=== PATIENT | female | born 1950 | race Two or more races ===

== ENCOUNTER 2020-07-14 21:57 | Emergency (ER) | payer MEDICARE, OTHER ==
[~2020-07-14] VITALS: Ht 162.6 cm; Wt 63.5 kg
[2020-07-14] MEDS ORDERED: cloNIDine HCL 0.1 MG TAB PO ONE (22:30)
[2020-07-14] MEDS ORDERED: HYDROcodone-ACET 5/325MG TAB PO ONE (22:45)
[2020-07-15] MEDS ORDERED: NEOMYCIN-BACITRACIN-POLYM UNITDOSE PKG TOP OINT TOP ONE (00:15)
[2020-07-15] MEDS ORDERED: TETANUS-DIPTH-ACEL PERTUSSIS 0.5ML SYR Tdap IM ONE (01:00)
[2020-07-15 01:17] VITALS: BP 93/53
[2020-07-15] MEDS ORDERED: SODIUM CHLORIDE 0.9% 500 ML IV ONE (01:30)
== END 2020-07-15 02:12 | disposition home or self-care (01) ==
LOC: ER 21:57
DX: S61.211A Laceration without foreign body of left index finger without damage to nail, initial encounter (principal); W26.0XXA Contact with knife, initial encounter; Y93.89 Activity, other specified; Y92.89 Other specified places as the place of occurrence of the external cause; Y99.8 Other external cause status
CPT/HCPCS: 12002; 90471; 90715; 99283; J2001